=== PATIENT | male | born 1970 | race Caucasian/White ===

== ENCOUNTER 2021-01-24 08:24 | Emergency (ER) | payer BC ==
[2021-01-24] MEDS ORDERED: Sodium Chloride 0.9% 100 ML BAG ONE (11:15)
[2021-01-24] MEDS ORDERED: Sodium Chloride 0.9% 500 ML BAG ONE (11:15)
[2021-01-24] MEDS ORDERED: Cefepime 2 GM VIAL ONE (11:15)
[2021-01-24 12:16] LABS: Hemoglobin 14.7 g/dL (14.0-18.0); Mean Corpuscular HGB CONC 33.3 g/dL (32.0-36.0); Mean Corpuscular Hemoglobin 32.9 pg (27.0-31.0); Mean Corpuscular Volume 98.8 fL (78.0-98.0); Platelet Count 61 thou/uL (130-400); RBC Distribution Width 11.5 % (11.5-14.5); Red Blood Cell (RBC) Count 4.46 mill/uL (4.70-6.10)
[2021-01-24 12:17] LABS: %Lymphocytes 14.5 % (21.0-51.0); %Neutrophils 67.4 % (42.0-75.0); Mean Platelet Volume 9.3 fL (7.4-10.4)
[2021-01-24 12:18] LABS: #Basophils 0.1 thou/uL (0.0-0.2); #Eosinphils 0.2 thou/uL (0.0-0.7); #Lymphocytes 0.9 thou/uL (1.20-3.40); #Monocytes 0.8 thou/uL (0.11-0.59); %Basophils 1.9 % (0.0-1.0); %Eosinophils 3.2 % (0.0-10.0); %Monocytes 13.1 % (0.0-10.0); Platelet Morphology Comment Appears Decreased
[2021-01-24 12:19] LABS: Lactic Acid 1.6 mmol/L (0.5-2.2)
[2021-01-24 12:20] LABS: Albumin 3.3 g/dL (3.5-5.0); Alkaline Phosphatase 196 U/L (40-110); Anion Gap 14 mmol/L (10-20); BUN (Urea Nitrogen) 9 mg/dL (8.9-20.6); Bilirubin, Total 3.3 mg/dL (0.2-1.2); Calc. Creatinine Clearance 0 mL/min (70-130); Carbon Dioxide 26 mmol/L (22-29); Chloride 103 mmol/L (98-107); Globulin 3.6 g/dL (2.4-3.5); Glucose 135 mg/dL (70-105); Protein, Total 6.9 g/dL (6.0-8.3); Sodium 139 mmol/L (136-145)
[2021-01-24 12:21] LABS: ALT (SGPT) 33 U/L (8-55); AST (SGOT) 38 U/L (5-34)
== END 2021-01-24 13:29 | disposition home or self-care (01) ==
LOC: MADERS 12:00
DX: I89.1 Lymphangitis (principal); R60.0 Localized edema; E11.9 Type 2 diabetes mellitus without complications; D69.6 Thrombocytopenia, unspecified; I73.9 Peripheral vascular disease, unspecified; I10 Essential (primary) hypertension; E66.9 Obesity, unspecified
CPT/HCPCS: 36415; 80053; 83605; 85025; 87040; 99283; J0692; J3370; J3490; J7030